=== PATIENT | male | born 1990 | race Caucasian/White ===

== ENCOUNTER 2019-01-29 10:23 | Outpatient (CLI) | payer BC ==
--- NOTE | 2019-01-29 16:04 | XRAY Report ---
Reason: THORACIC BACK PAIN Procedure Date: 01/29/2019 Accession Number: [id number] / [id number] Procedure: XRS - Thoracic Spine 2 View CPT Code: Final Report FULL RESULT: EXAM: THORACIC SPINE RADIOGRAPHY EXAM DATE: 01/29/2019 10:54 AM. CLINICAL HISTORY: THORACIC BACK PAIN. COMPARISON: None. TECHNIQUE: 2 views. FINDINGS: Alignment: Normal. No spondylolisthesis or scoliosis. Bones: No fractures or bone lesions. Disks: Normal. Disk heights are maintained. Soft Tissues: Normal. The visualized lungs and cardiomediastinal silhouette are normal. IMPRESSION: 1. No acute thoracic spine abnormalities are identified. [facility]
== END 2019-01-29 10:24 | disposition home or self-care (01) ==
LOC: DI.S 10:23
PROVIDERS: ATTEND Registered Nurse
DX: M54.6 Pain in thoracic spine (principal)
CPT/HCPCS: 72070

== ENCOUNTER 2020-01-01 16:56 | Outpatient (CLI) | payer OTHER | END 2020-01-01 16:57 | disposition home or self-care (01) | LOC: COV 16:56 | PROVIDERS: ATTEND Family Medicine | DX: R06.02 Shortness of breath (principal); Z20.828 Contact with and (suspected) exposure to other viral communicable diseases; R09.81 Nasal congestion; M79.10 Myalgia, unspecified site; R53.83 Other fatigue ==